=== PATIENT | female | born 1950 | race Caucasian/White ===

== ENCOUNTER 2019-01-20 13:38 | Emergency (ER) | payer MEDICARE, OTHER | END 2019-01-20 17:25 | disposition home or self-care (01) | LOC: FTE 13:38 | DX: K08.89 Other specified disorders of teeth and supporting structures (principal); I10 Essential (primary) hypertension; Z79.82 Long term (current) use of aspirin; Z79.84 Long term (current) use of oral hypoglycemic drugs | CPT/HCPCS: 99283 ==